=== PATIENT | female | born 1970 | race Caucasian/White ===

== ENCOUNTER 2017-02-06 11:42 | Emergency (ER) | payer BC, OTHER ==
[~2017-02-06] VITALS: Ht 167.6 cm; Wt 67.1 kg
[~2017-02-06 11:42] MED LIST: METO-302 PO; NORE1TAB PO; VITAMIND PO
[2017-02-06] MEDS ORDERED: METO-304 PO (11:58)
--- NOTE | 2017-02-06 12:26 | NUR ---
Patient discharged to home in stable conditon. Written and verbal after care instructions given. Patient verbalizes understanding of instructions.
== END 2017-02-06 12:27 | disposition home or self-care (01) ==
LOC: ER 11:42
DX: S00.12XA Contusion of left eyelid and periocular area, initial encounter (principal); I10 Essential (primary) hypertension; E78.00 Pure hypercholesterolemia, unspecified; Z88.0 Allergy status to penicillin; X58.XXXA Exposure to other specified factors, initial encounter; Y93.89 Activity, other specified; Y92.9 Unspecified place or not applicable; Y99.9 Unspecified external cause status
CPT/HCPCS: A4663

== ENCOUNTER 2018-07-31 10:43 | Emergency (ER) | END 2018-07-31 12:18 | disposition home or self-care (01) | DX: N12 Tubulo-interstitial nephritis, not specified as acute or chronic (principal); J06.9 Acute upper respiratory infection, unspecified; I10 Essential (primary) hypertension; F17.290 Nicotine dependence, other tobacco product, uncomplicated; Z88.0 Allergy status to penicillin; Z88.8 Allergy status to other drugs, medicaments and biological substances | CPT/HCPCS: 36415; 71045; 80048; 81001; 84703; 85025; 87077; 87086; 87186; 96365; 99284; 99406; J1956 ==

== ENCOUNTER 2019-04-04 08:42 | Emergency (ER) | payer MEDICAID, OTHER ==
[~2019-04-04] VITALS: Ht 167.6 cm; Wt 72.6 kg
[~2019-04-04 08:42] MED LIST changes: -METO-302 PO; +METO-357 PO; -NORE1TAB PO; -VITAMIND PO
[2019-04-04 09:11] LABS: *BILIRUBIN,URIN NEGATIVE (NEGATIVE); *BLOOD, URINE 2+ (NEGATIVE); *CLARITY,URINE CLEAR (CLEAR); *COLOR,URINE YELLOW (YELLOW); *KETONES,URINE NEGATIVE (NEGATIVE); *UROBILINOGEN,URINE 0.2 E.U./dl (NORMAL); LEUKOCYTE ESTERASE ,URINE TRACE (NEGATIVE); NITRITE, URINE NEGATIVE (NEGATIVE); PH,URINE 6.5 (5.0-8.0); UGLUCOSE NEGATIVE (NEGATIVE)
[2019-04-04 09:26] LABS: *URINE HCG, QUAL NEGATIVE (NEGATIVE)
[2019-04-04 09:28] LABS: BACTERIA,URINE FEW /HPF (NONE SEEN); SQUAMOUS EPITHELIAL CELL,UR MODERATE /HPF (NONE SEEN); WBC,URINE 0-3 /HPF (0-3)
--- NOTE | 2019-04-04 09:40 | NUR ---
Patient discharged to home in stable conditon. Written and verbal after care instructions given. Patient verbalizes understanding of instructions.PT WALKS IN STEADY GAIT. NO SIGN OF DISTRESS.
== END 2019-04-04 09:43 | disposition home or self-care (01) ==
LOC: ER 08:42
DX: N39.0 Urinary tract infection, site not specified (principal); K08.89 Other specified disorders of teeth and supporting structures; E78.00 Pure hypercholesterolemia, unspecified; I10 Essential (primary) hypertension; F17.200 Nicotine dependence, unspecified, uncomplicated; Z88.0 Allergy status to penicillin; Z88.8 Allergy status to other drugs, medicaments and biological substances; Z79.899 Other long term (current) drug therapy
CPT/HCPCS: 84703; 87086; A4663

== ENCOUNTER 2019-04-07 08:49 | Emergency (ER) | payer MEDICAID ==
[~2019-04-07] VITALS: Ht 167.6 cm; Wt 72.6 kg
[2019-04-07] MEDS ORDERED: PHEN-704 PO (09:03)
[2019-04-07] MEDS ORDERED: CLIN300C11 PO (09:03)
[2019-04-07] MEDS ORDERED: IBUP-1955 PO (09:03)
[2019-04-07 09:29] LABS: *BILIRUBIN,URIN 1+ (NEGATIVE); *BLOOD, URINE 3+ (NEGATIVE); *CLARITY,URINE CLOUDY (CLEAR); *COLOR,URINE RED (YELLOW); *KETONES,URINE NEGATIVE (NEGATIVE); *UROBILINOGEN,URINE 0.2 E.U./dl (NORMAL); LEUKOCYTE ESTERASE ,URINE TRACE (NEGATIVE); NITRITE, URINE NEGATIVE (NEGATIVE); PH,URINE 6.5 (5.0-8.0); UGLUCOSE NEGATIVE (NEGATIVE)
[2019-04-07 09:41] LABS: BACTERIA,URINE FEW /HPF (NONE SEEN); RBC,URINE TNTC /HPF (0-3); SQUAMOUS EPITHELIAL CELL,UR FEW /HPF (NONE SEEN)
--- NOTE | 2019-04-07 10:05 | NUR ---
PATIENT WAS SEEN BY . URINE SENT TO LAB. DC, RX AND FOLLOW UP INSTRUCTIONS GIVEN AND EXPLAINED TO PATIENT WHO STATE SHE UNDERSTANDS ALL INSTRUCTIONS.
== END 2019-04-07 10:12 | disposition home or self-care (01) ==
LOC: ER 08:49
DX: N30.90 Cystitis, unspecified without hematuria (principal); I10 Essential (primary) hypertension; E78.00 Pure hypercholesterolemia, unspecified; F17.200 Nicotine dependence, unspecified, uncomplicated; Z88.0 Allergy status to penicillin; Z88.8 Allergy status to other drugs, medicaments and biological substances; Z79.2 Long term (current) use of antibiotics; Z79.1 Long term (current) use of non-steroidal anti-inflammatories (NSAID); Z79.899 Other long term (current) drug therapy
CPT/HCPCS: 87086; A4663